=== PATIENT | male | born 1965 | race Caucasian/White ===

== ENCOUNTER 2017-06-04 17:42 | Emergency (ER) | payer MEDICAID ==
[2017-06-04 17:49] VITALS: BP 116/69; PULSE 115; RESP 16; TEMP 97.9; O2SAT 92
[2017-06-04] MEDS ORDERED: DEXAMETHASONE 4 MG/ML VIAL IVP ONE (17:50)
[2017-06-04] MEDS ORDERED: KETAMINE 500 MG/10 ML VIAL NASAL ONE (17:50)
[2017-06-04] MEDS ORDERED: DIAZEPAM 2 MG TAB PO ONE (17:52)
--- NOTE | 2017-06-04 18:09 | EDPHY ---
H & P Time Seen by Provider: 06/04/17 18:06 HPI/ROS: HPI: Mr. Montano is a 51 yrs, male who presents with Chief Complaint: Back pain Location: Neck, thoracic, lumbar Quality: Pain Duration: The last 30 days Signs and Symptoms: No radiation, no incontinence, no weakness, no difficulty ambulating, no urinary symptoms, no hematuria, no abdominal pain, no suicidal ideation, no homicidal ideation, no hallucinations Timing: Acute on chronic, worse today Severity: 07/28 Context: Patient has has a history of chronic back pain and chronic neck pain which appears to be having surgeries in both the cervical and lumbar region possibly laminectomies versus fusion. Records are in [place] and [facility]. Patient states that he is trying to get off the [place] but denies having any opiate pain medications for the last 30 days. EMS was called to [facility] were patient was found lying on the ground as "the pain was too bad from a neck to my tailbone." Patient has spent the last 3 months in the [facility]. 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 He works 5 days a week. Reports that this has caused strain on his neck and back. Patient does not have a primary care provider here in [place]. Modifying Factors: No [id number] medications tried. Patient admits to drinking 5 shots of Tequila and having approximately 8 IPA beers with no pain relief Comment: ROS: Eyes: No blurred vision Respiratory: No shortness of breath, no cough Cardiovascular: No chest pain Gastrointestinal: No nausea, no vomiting no diarrhea Genitourinary: No dysuria Extremities: No myalgias Neurologic: No weakness, no numbness Skin: No rashes Hematologic: No bruising, no bleeding MEDICAL/SURGICAL HISTORY: Chronic neck pain, chronic back pain, what appears to be chronic opiate use Social History: Currently employed. Travels frequently. Smoking Status: Never smoked Physical Exam: CONSTITUTIONAL: Slightly uncooperative adult white male, who is clearly under the influence of alcohol with mild slurring words, awake and alert, no obvious distress HEENT: Atraumatic and normocephalic, PERRL, EOMI. Tympanic membranes clear. . Oropharynx clear, no exudate and moist pink mucosa. Airway patent. No lymphadenopathy. No meningismus. Cardiovascular: Normal S1/S2, tachycardia, regular rhythm, without murmur rub or gallop. PULMONARY/CHEST: Symmetrical and nontender. Clear to auscultation bilaterally Good air movement. No accessory muscle usage. ABDOMEN: Soft, nondistended, nontender, no rebound, no guarding, no peritoneal signs, no masses or organomegaly. No CVAT. EXTREMITIES: 2/2 pulses, no deformities, no clubbing, no cyanosis or edema. BACK: Tenderness to palpation on bilateral paraspinous region from his cervical area down to his coccyx; nonfocal. No paraspinous muscle spasm appreciated DTR 2/2, ambulatory without deficits. Mild pain with bilateral straight leg raise. Bilateral hip shows full range of motion of flexion/ internal rotation/external rotation. Able to walk on heels and toes. NEUROLOGICAL: no focal neuro deficits. GCS 15. He will follow 2 step commands. Mild fine motor coordination deficits noted. SKIN: Warm and dry, multiple tattoos, no erythema. no rash. Good capillary refill. Constitutional: Initial Vital Signs Temperature (C) 36.6 C 06/04/17 17:45 Heart Rate 115 H 06/04/17 17:45 Respiratory Rate 16 06/04/17 17:45 Blood Pressure 116/69 06/04/17 17:45 O2 Sat (%) 92 06/04/17 17:45 O2 Delivery Mode Room Air Allergies/Adverse Reactions: honey Allergy (Verified 06/04/17 17:49) Penicillins Allergy (Verified 06/04/17 17:49) Medical Decision Making ED Course/Re-evaluation: Cervical x-ray, thoracic x-ray, lumbar sacral x-ray, IV medications given No signs of neurovascular compromise, saddle anesthesia, cauda equina syndrome Advised the patient that the ER will not prescribe chronic pain medications but will evaluate for any acute emergency Breathalyzer shows alcohol level of 166 Patient given IV Decadron At 6:25 p.m. patient was seen walking out of x-ray unsupervised asking to leave. Patient gave his brother's name who will come to the hospital and contract for safety. Patient moved to room closer to security. [id number] Called [email or web address], personally at [phone] [id number] ED against medical advice; patient is alert and oriented x3 deemed competent to make his own decisions albeit he has poor insight and judgment. Patient signed AMA form after I discussed the risks, benefits, and alternative treatment patient. Patient does not want to stay in the emergency room to obtain as x-ray are receive any further treated. I suspect it is due to him not receiving any narcotics for his request for chronic pain. Departure - Departure Disposition: Against Medical Advice Clinical Impression: Chronic pain syndrome, Chronic neck and back pain Alcohol intoxication Qualifiers: Complication of substance-induced condition: uncomplicated Qualified Code(s): F10.920 - Alcohol use, unspecified with intoxication, uncomplicated Condition: Fair Instructions: Chronic Back Pain (ED) Referrals: Patient,NotPresent [Primary Care Provider] - As per Instructions [facility],. [Clinic] - 5-7 days, call for appt.
== END 2017-06-04 18:30 | disposition left against medical advice (07) ==
DX: M54.2 Cervicalgia (principal); M54.5 Low back pain; G89.4 Chronic pain syndrome; F10.920 Alcohol use, unspecified with intoxication, uncomplicated